=== PATIENT | female | born 2005 | race Two or more races ===

== ENCOUNTER 2025-08-13 20:18 | Emergency (ER) | payer MEDICAID, OTHER ==
[~2025-08-13] VITALS: Ht 160 cm; Wt 46.0 kg
[2025-08-13] MEDS ORDERED: ZOFR4T PO (22:02)
[2025-08-13] MEDS ORDERED: NABU-72 PO (22:02)
--- NOTE | 2025-08-13 22:03 | ED.PDOC ---
Carlos. trauma (HPI) HPI Comments Pt c/o SANTOS x2 weeks. Pt says pain has been intermittent with intermittent dizziness, says this morning she hit head on fridge and pain got worse, rates pain 4/10. Pt has taken Ibuprofen for pain without relief. Denies numbness, weakness, slurred speech, blurry vision does state some nausea without vomiting reports no difficulty breathing, shortness of breath, or LOC. Chief Complaint: Headache Time Seen by MD: 20:27 Reviewed notes: Nurses Notes, Medications, Allergies Allergies: Coded Allergies: NO KNOWN ALLERGIES (Unverified , 08/13/25) Home Meds Active Scripts Nabumetone (Nabumetone) 500 Mg Tab, 1 TAB PO BID PRN for 5 Days, #10 TAB Prov:DANDY DELGADO [facility] 08/13/25 Ondansetron Odt 4MG Tab (ZOFRAN PO) 4 Mg Tb, 4 MG PO Q8HP PRN for 4 Days, #12 TAB ODT TAB-DISSOLVE IN MOUTH, THEN SWALLOW Prov:DANDY DELGADO [facility] 08/13/25 Information Source: Patient Mode of Arrival: Ambulatory Past Medical History PAST MEDICAL HISTORY: Denies Surgical History: Denies all surgeries TRAUMA REGISTRAR History: No Pertinent TRAUMA REGISTRAR History Family History Family History: Reviewed,noncontributory to illness Social History Smoker: Non-Smoker Alcohol: Denies ETOH Use Drugs: Denies Drug Use All Other Systems: Reviewed and Negative (see hpi) Physical Exam General Appearance: No Apparent Distress, Normal HEENT: Head (No noted hematoma, laceration, bleeding), Normal ENT Inspection, Pharynx Normal, TMs Normal Neck: Full Range of Motion, Non-Tender Respiratory: Chest Non-Tender, Lungs Clear, No Accessory Muscle Use, No Respiratory Distress, Normal Breath Sounds Cardiovascular: No Edema, No JVD, No Murmur, No Gallop, Normal Peripheral Pulses, Regular Rate/Rhythm Breast Exam: Deferred Gastrointestinal: No Organomegaly, Non Tender, No Pulsatile Mass, Normal Bowel Sounds, Soft Genitalia: Deferred Pelvic: Deferred Rectal: Deferred Extremities: Normal capillary refill, Normal range of motion, Non-tender, No pedal edema Musculoskeletal : Apperance: Normal Neurologic: Alert, No Motor Deficits, Normal Affect, Normal Mood, No Sensory Deficits Cerebellar Function: Normal Reflexes: Normal Skin: Dry, Normal Color, Warm Lymphatic: No Adenopathy Was a procedure done? Was a procedure done?: No Differential Diagnosis Multiple Trauma: Closed Head Injury, Fractures, Cerebral Contusion, Abrasions, Contusion, Hematoma Neck Injury: Cervical Muscle Spasm, Cervical Sprain, Cervical Strain X-Ray, Labs, Meds, VS Vital Signs Date Time Temp Pulse Resp B/P (MAP) Pulse Ox O2 Delivery O2 Flow Rate FiO2 08/13/25 22:30 96 20 98 Room Air 08/13/25 22:30 98.2 96 20 107/65 (79) 98 98.2 08/13/25 20:19 98.2 109 17 142/101 98 98.2 Current Medications Medications (Trade) Dose Ordered Sig/Merary Route Start Time Stop Time Status Last Admin Ketorolac Tromethamine (Toradol Injection) 30 mg ONCE ONCE IM 08/13/25 22:15 08/13/25 22:16 DC 08/13/25 22:29 Ondansetron HCl (Zofran Po) 4 mg ONCE ONCE PO 08/13/25 22:15 08/13/25 22:16 DC 08/13/25 22:29 X-Ray, Labs, Meds, VS Comment Exam grossly benign. Patient given Toradol 30 mg IM and Zofran 4 mg p.o. reports improvement in pain requesting discharge at this time. Script trial of anti-inflammatory in the Zofran. Advised to rest increase p.o. fluids with electrolytes. Advised to avoid vigorous activity, and visual stimuli while with concussion. Advised to follow up with her PCP in 2-3 days ER return precautions discussed patient indicates understanding and agrees with discharge plan of care. Time of 1ST Reevaluation: 20:27 Reevaluation 1ST: Unchanged Time of 2ND Reevaluation: 22:02 Reevaluation 2ND: Improved Patient Education/Counseling: Diagnosis, Treatment, Prognosis, Need For Follow Up Family Education/Counseling: Diagnosis, Treatment Departure 1 Departure Time of Disposition: 22:01 Impression: Primary Impression: Post-concussion headache Disposition: HOME / SELF CARE / HOMELESS Condition: Stable e-Prescriptions Nabumetone (Nabumetone) 500 Mg Tab 1 TAB PO BID PRN for 5 Days, #10 TAB Prov: DANDY DELGADO [employer] 08/13/25 Ondansetron Odt 4MG Tab (ZOFRAN PO) 4 Mg Tb 4 MG PO Q8HP PRN for 4 Days, #12 TAB ODT TAB-DISSOLVE IN MOUTH, THEN SWALLOW Prov: DANDY DELGADO 08/13/25 Discharged With: Significant Other Critical Care Note Critical Care Time?: No Stability Stability form required: DANDY Morgan Aug 13, 2025 22:02
[2025-08-13] MEDS: ONDANSETRON ODT 4 MG TAB PO ONE (22:29)
[2025-08-13] MEDS: KETOROLAC TROMETH 60MG/2ML VIAL IM ONE (22:29)
[2025-08-13 22:30] VITALS: BP 107/65; PULSE 96; RESP 20; TEMP 98.2; O2SAT 98
== END 2025-08-13 22:03 | disposition home or self-care (01) ==
LOC: ER 20:18
DX: G44.309 Post-traumatic headache, unspecified, not intractable (principal)
CPT/HCPCS: 96372; 99283; J1885; Q0162